=== PATIENT | female | born 1980 | race Caucasian/White ===

== ENCOUNTER 2021-03-20 11:31 | Emergency (ER) | payer OTHER ==
[~2021-03-20 11:31] MED LIST: CLARITIN10 MG PO; HYDROXYZINE HCL10 MG PO; IBUPROFEN800 MG PO; MOBIC15 MG PO; NAPROSYN500 MG PO; NORCO 5-325 TA1 EACH PO; NORFLEX 100 MG100 MG PO; TENORMIN 25 MG25 MG PO; ZYRTEC10 MG PO
[2021-03-20] MEDS ORDERED: CYCLOBENZAPRINE10 MG PO (14:17)
[2021-03-20] MEDS ORDERED: NAPROSYN500 MG PO (14:17)
== END 2021-03-20 14:29 | disposition home or self-care (01) ==
LOC: ER1 11:31
DX: S39.012A Strain of muscle, fascia and tendon of lower back, initial encounter (principal); X50.0XXA Overexertion from strenuous movement or load, initial encounter
CPT/HCPCS: 72131; 96372; 99283; J1885

== ENCOUNTER 2022-03-16 17:43 | Emergency (ER) | payer OTHER ==
[~2022-03-16 17:43] MED LIST changes: +CYCLOBENZAPRINE10 MG PO
== END 2022-03-16 20:23 | disposition home or self-care (01) ==
LOC: ER1 17:43
DX: S70.312A Abrasion, left thigh, initial encounter (principal); W19.XXXA Unspecified fall, initial encounter
CPT/HCPCS: 99282